=== PATIENT | female | born 1995 | race Caucasian/White ===

== ENCOUNTER 2025-05-04 12:42 | Emergency (ER) | payer OTHER, SELFPAY ==
[2025-05-04 12:51] VITALS: BP 117/84
[2025-05-04] MEDS: TYLENOL 1000 MG PO (14:00)
--- NOTE | 2025-05-04 14:39 | ED.GENMED ---
History of Present Illness
General
Chief Complaint: Head Injury
Time Seen by Provider: 05/04/25 13:33
History of Present Illness
History of Present Illness:
30-year-old female brought to the ER by mom for evaluation of head injury after she slipped and fell on her bathroom floor at 1130 this morning. Patient states that she struck her head on the floor. No loss of consciousness. She has been able to
ambulate since the injury without assistance. She reports severe head pain only. No vomiting. No change in vision. No paresthesias to arms or legs. No prior history of significant head injury although she did undergo electromagnetic treatment
on her brain last year at [place] for treatment of her mental health issues. She has no history of bleeding dyscrasia. She did not take any medications for her discomforts prior to arrival. She was in touch with her primary care physician who
referred her to the ER for radiologic imaging. Patient also is concerned as she has a history of hypochondriasis and states that she would be worried without receiving any further evaluation. Patient denies . She reports mild nausea.
Review of Systems
Review of Systems
Allergies reviewed?: Yes
Phy Exam
Physical Exam
Physical Exam:
Vital signs reviewed, normal, head is normocephalic atraumatic with mild pain on palpation over posterior scalp, skin is intact, no palpable hematoma, no crepitus, no midline pain on palpation of cervical spine, patient has full active range of
motion all directions of cervical spine without discomfort, PERRL, EOMI, no facial weakness noted, tongue is midline, mucous membranes moist, no dysdiadochokinesia, no ataxia, no pronator drift, moving all extremities symmetrically without focal
deficit, speech is clear, GCS is 15, no rash.
Course
Orders/Labs/Results
Orders:
Orders
05/04/25 13:38
CT Head W/o Iv Contrast Urgent
Comment:
Reason For Exam: trauma
05/04/25 13:53
Acetaminophen [Tylenol] 1,000 mg PO NOW STA
Vital Signs
Initial and Last Documented VS:
Initial Vital Signs
Temp Pulse Resp BP Pulse Ox
98.1 F 78 16 117/84 98
05/04/25 12:51 05/04/25 12:51 05/04/25 12:51 05/04/25 12:51 05/04/25 12:51
Last Documented Vital Signs
Temp Pulse Resp BP Pulse Ox
98.1 F 76 16 119/71 100
05/04/25 12:51 05/04/25 16:53 05/04/25 16:53 05/04/25 16:53 05/04/25 16:53
Comment
Comment:
Oxygen saturation is 98% on room air which is normal.
I discussed with patient treatment options in the emergency department. Will obtain CT head and give dose of Tylenol. Mom and patient agree with plan at current
MDM/Problems Addressed
Differential Diagnosis Includes:
Concussion, contusion, closed head injury minor, intracranial hemorrhage, skull fracture along with other etiologies considered
Chronic conditions affecting care:
Anxiety
*Radiology
Radiology exam reviewed: preliminary read by ED provider (Family viewed interpreted noncontrast CT head showing no midline shift, no gross hemorrhage. Awaiting radiology interpretation)
*Pulse Oximetry
SaO2: 98
Oxygen Mode of Delivery: Room air
Patient hypoxic: no
*Critical Care Note
Total Time (30-74mins, 75-104mins- exclusive of procedures): Not Applicable
Update Note
Update Note:
I reviewed with patient and mother very reassuring CT of the head, no evidence for acute traumatic process. I discussed with them treatment of concussion and continued supportive care along with strict return precautions. They agree with plan for
follow-up with primary care physician and had no questions prior to leaving the department.
ED Attending Note
-
Portions of this chart may have been created with voice recognition software.� Occasional wrong word or��sound alike� substitutions may have occurred due to the inherent limitations of voice recognition software.
Discharge Plan
Departure
Patient Disposition: Home (Routine Discharge)
Date of Disposition: 05/04/25
Time of Disposition: 16:42
Patient with high blood pressure during this ER visit?: No
Discharge Problem:
Concussion, Head injury
Instructions: Concussion, Adult (DC), Head Injury in Adults (DC)
Referrals:
Marcin Wilson MD [Family Provider, General]
Activity Restrictions/Additional Instructions:
Use Tylenol and or ibuprofen as needed as available [id number] for discomfort. Encourage fluids. Please avoid back lit devices (television, computer, cell phone) as much as possible until you are seen in follow-up with your primary care
physician. Please contact their office today to schedule appointment for reevaluation and further care. Return to the ER for any concerns
Interventions
Interventions:
*Risk Screen - Suicide Last Done: 05/04/25 12:51
*General Assessment Last Done: 05/04/25 12:51
*ED- Fall Risk Assessment Last Done: 05/04/25 13:24
*ED COVID-19 Vaccine History Last Done: 05/04/25 13:24
*Nursing Disposition Last Done: 05/04/25 16:53
ED- Neurological Assessment Last Done: 05/04/25 13:24
ED-Skin Assessment Last Done: 05/04/25 13:24
Discharge Date and Time
Discharge Date/Time: 05/04/25 16:54
Print Language: CHINESE
[2025-05-04 16:53] VITALS: BP 119/71
== END 2025-05-04 16:54 | disposition home or self-care (01) ==
LOC: EMR 12:42
PROVIDERS: EMERGENCY PHYSICIAN Emergency Medicine; FAMILY PHYSICIAN Student in an Organized Health Care Education/Training Program
DX: S06.0X0A Concussion without loss of consciousness, initial encounter (principal); W01.0XXA Fall on same level from slipping, tripping and stumbling without subsequent striking against object, initial encounter
CPT/HCPCS: 99284; 70450